=== PATIENT | male | born 1980 | race Two or more races ===

== ENCOUNTER 2019-05-21 07:54 | Emergency (ER) | payer MEDICAID, OTHER ==
[~2019-05-21] VITALS: Ht 180.3 cm; Wt 95.3 kg
[2019-05-21 09:55] VITALS: BP 136/69
[2019-05-21] MEDS ORDERED: METHOCARBAMOL 500 MG TAB PO ONE (10:15)
[2019-05-21] MEDS ORDERED: KETOROLAC TROMETH 60MG/2ML VIAL IM ONE (10:15)
== END 2019-05-21 10:45 | disposition home or self-care (01) ==
LOC: ER 07:54 → EDBD 07:54 → ER 10:45
DX: M62.830 Muscle spasm of back (principal)
CPT/HCPCS: 96372; 99283; J1885

== ENCOUNTER 2021-06-21 19:40 | Emergency (ER) | payer MEDICAID ==
[~2021-06-21] VITALS: Ht 182.9 cm; Wt 102.1 kg
[2021-06-21] MEDS ORDERED: KETOROLAC TROMETH 30 MG/ML 1ML VIAL IM ONE (22:30)
[2021-06-21] MEDS ORDERED: IBUP600T27 PO (22:37)
[2021-06-21 23:09] VITALS: BP 133/78
== END 2021-06-21 23:08 | disposition home or self-care (01) ==
LOC: ER 19:43
DX: S83.91XA Sprain of unspecified site of right knee, initial encounter (principal); Z79.1 Long term (current) use of non-steroidal anti-inflammatories (NSAID); W17.89XA Other fall from one level to another, initial encounter; Y93.89 Activity, other specified; Y92.89 Other specified places as the place of occurrence of the external cause; Y99.8 Other external cause status
CPT/HCPCS: 29505; 73562; 96372; 99283; J1885

== ENCOUNTER 2021-11-30 00:17 | Emergency (ER) | payer MEDICAID ==
[~2021-11-30] VITALS: Ht 182.9 cm; Wt 98.0 kg
[~2021-11-30 00:17] MED LIST: IBUP600T27 PO
[2021-11-30] MEDS ORDERED: PROM1SOL4 PO (03:05)
[2021-11-30] MEDS ORDERED: AZITTAB PO (03:05)
[2021-11-30] MEDS ORDERED: ALBUAER3 IN (03:05)
[2021-11-30 03:58] VITALS: BP 139/84
== END 2021-11-30 04:05 | disposition home or self-care (01) ==
LOC: ER 00:17
DX: J06.9 Acute upper respiratory infection, unspecified (principal)

== ENCOUNTER 2024-03-20 12:40 | Emergency (ER) | payer MEDICAID ==
[~2024-03-20] VITALS: Ht 182.9 cm; Wt 106.8 kg
[~2024-03-20 12:40] MED LIST changes: +ALBUAER3 IN; +AZITTAB PO; +IBUP-1454 PO; -IBUP600T27 PO; +PROM1SOL4 PO
--- NOTE | 2024-03-20 14:01 | DVH ---
CLINICAL INDICATION: pain TECHNIQUE: XY L KNEE 3V XRAY Comparison: R KNEE 3V XRAY on DOS: 06/21/21 FINDINGS/IMPRESSION: There is no evidence of acute fracture or dislocation. The visualized joint space is well maintained. The alignment is anatomical. There is no radiopaque foreign body.
--- NOTE | 2024-03-20 14:54 | ED.PDOC ---
Musculoskeletal HPI Comments 43 year old male presents for left knee pain Onset started months ago but reports symptoms have been gradually worsening reports hyperextending right knee years ago reports pain comes and go with no specific pattern taking oxycodone from friend denies f/c/n/v/d Able to bear weight on the leg Denies trauma to the knee or recent fall Denies skin color changes around the knee Denies masses around the knee Denies popping/locking/giving out of the knee Denies fever chills night sweats nausea vomiting Denies previous surgeries to the knee nor significant injury Chief Complaint: Lower Extremity Time Seen by MD: 13:18 Primary Care Provider: MONCHO Reviewed Notes: Nurses Notes, Medications, Allergies Allergies: Coded Allergies: NO KNOWN ALLERGIES (Unverified , 05/21/19) Home Meds Active Scripts Naproxen (Naproxen) 500 Mg Tab, 500 MG PO BID for 14 Days, #28 TAB 0 Refills Prov:MERYL MICHELE NURSE CONSULTANT 03/20/24 Prednisone (Prednisone) 20 Mg Tab, 40 MG PO DAILY for 5 Days, #10 TAB 0 Refills Prov:MERYL MICHELE NURSE CONSULTANT 03/20/24 Albuterol Sulfate (VENTOLIN MDI) 90 Mcg Ih, 90 MCG IN TID PRN, #1 INH Prov:KISHA CONSTANTINO 11/30/21 Promethazine-Dm (Promethazine Dm 6.25-15 mg/5Ml) 1 Fany Fany, 10 ML PO TID PRN, #240 ML Prov:KISHA CONSTANTINO 11/30/21 Azithromycin (Zithromax Z-Serge) 250 Mg Tab, 250 MG PO DAILY for 5 Days, #6 TAB Prov:KISHA CONSTANTINO 11/30/21 Ibuprofen (Ibuprofen) 600 Mg Tab, 1 TAB PO TID, #30 TAB 0 Refills Prov:JOSH GARCIA 06/21/21 Information Source: Patient Mode of Arrival: Ambulatory Past Medical History PAST MEDICAL HISTORY: Denies Surgical History: Hernia Repair Family History Family History: Reviewed,noncontributory to illness, No family hx of Cancer, No family hx of DM, No family hx of Heart trevor, No family hx of HTN, No family hx ofKidney trevor, No family hx of Liver trevor, No family hx of Lung trevor, No family hx of Stroke Social History Smoker: Non-Smoker Alcohol: Denies ETOH Use Drugs: Denies Drug Use Lives In: Home All Other Systems: Reviewed and Negative (per hpi) Physical Exam General Appearance: No Apparent Distress, Normal HEENT: Normal ENT Inspection, Pharynx Normal, TMs Normal Neck: Full Range of Motion, Non-Tender, Normal, Normal Inspection Respiratory: Chest Non-Tender, Lungs Clear, No Accessory Muscle Use, No Respiratory Distress, Normal Breath Sounds Cardiovascular: No Murmur, No Gallop, Regular Rate/Rhythm Breast Exam: Deferred Gastrointestinal: No Organomegaly, Non Tender, No Pulsatile Mass, Normal Bowel Sounds, Soft Genitalia: Deferred Pelvic: Deferred Rectal: Deferred Extremities: No calf tenderness, Normal capillary refill, Normal inspection, Normal range of motion, Non-tender, No pedal edema Musculoskeletal : Location: Left Extremity Location: Knee (No gross abnormality to the knee on inspection. No open wounds, no ecchymosis, no soft tissue swelling, no erythema. Full passive and active range of motion. No crepitus. Valgus valgus stress test negative. Anterior and posterior drawer test negative) Apperance: Normal Neurologic: Alert, skidder II-XII nml as Tested, No Motor Deficits, Normal Affect, Normal Mood, No Sensory Deficits Cerebellar Function: Normal Reflexes: Normal Skin: Dry, Normal Color, Warm Lymphatic: No Adenopathy Was a procedure done? Was a procedure done?: No Differential Diagnosis EXT Differential Diagnosis: Fracture, Sprain, Dislocation, Strain X-Ray, Labs, Meds, VS Vital Signs Date Time Temp Pulse Resp B/P (MAP) Pulse Ox O2 Delivery O2 Flow Rate FiO2 03/20/24 15:30 98.0 86 16 162/94 (116) 96 98.0 03/20/24 15:30 86 16 96 Room Air 03/20/24 13:01 98.0 86 16 162/94 (116) 96 Current Medications Medications (Trade) Dose Ordered Sig/Radha Route Start Time Stop Time Status Last Admin Ketorolac Tromethamine (Toradol Injection) 30 mg ONCE ONCE IM 03/20/24 15:00 03/20/24 15:12 DC 03/20/24 15:31 Acetaminophen/ Hydrocodone Bitart ([place] 7.5/325MG Tab) 1 tab ONCE ONCE PO 03/20/24 15:00 03/20/24 15:12 DC 03/20/24 15:31 X-Ray, Labs, Meds, VS Comment X-ray of the left knee X-ray interpreted by radiologist and reviewed by me Today symptoms are consistent with acute internal derangement of the left knee Prescribed NSAIDs for the management of acute knee pain. Recommend light walking under the sun for 30 minutes a day Avoiding running jogging high-impact activities Stretch as tolerated Ice 3x/day for 5 minutes Wear knee brace for stability as needed, elevate leg swelling aggravated On reevaluation, patient had symptomatic improvement. Patient is stable for discharge at this time. External notes reviewed. Test results and diagnostic imaging interpreted. All diagnostic findings, discharge care, education and instructions provided Follow-up with PCP in 2 to 3 days Patient verbalized understanding and agreed to treatment plan Vital signs stable, afebrile, no acute distress noted Patient ambulatory with strong steady gait Advised to return precautions for any new or worsening symptoms, return to ER immediately for re-evaluation Patient is aware that the purpose of this visit was for an acute medical emergency requiring emergent stabilization. Chronic conditions, including malignancies have not been ruled out. Patient is instructed to follow up with PCP as directed and discharge instructions for continued care and workup. If unable to arrange follow-up, patient is to return to the emergency department for reassessment. Patient (parent or legal guardian if applicable) was given verbal and written discharge instructions and acknowledges understanding. Time of 1ST Reevaluation: 14:00 Reevaluation 1ST: Improved Patient Education/Counseling: Diagnosis, Treatment Family Education/Counseling: Diagnosis, Treatment Departure 1 Departure Time of Disposition: 14:54 Impression: Primary Impression: Internal derangement of knee Qualified Codes: M23.92 - Unspecified internal derangement of left knee Disposition: 01 HOME / SELF CARE / HOMELESS Condition: Stable e-Prescriptions Naproxen (Naproxen) 500 Mg Tab 500 MG PO BID for 14 Days, #28 TAB 0 Refills Prov: MERYL MICHELE NP 03/20/24 Prednisone (Prednisone) 20 Mg Tab 40 MG PO DAILY for 5 Days, #10 TAB 0 Refills Prov: MERYL MICHELE NP 03/20/24 Discharged With: Self Critical Care Note Critical Care Time?: No Stability Stability form required: No Heart Score Heart Score: Heart Score Response (Comments) Value History N/A 0 EKG N/A 0 Age N/A 0 Risk Factors N/A 0 Troponin N/A 0 Total 0 MERYL MICHELE NP Mar 20, 2024 14:54
[2024-03-20] MEDS ORDERED: NAPR-746 PO (14:59)
[2024-03-20] MEDS ORDERED: PRED20TA2 PO (14:59)
[2024-03-20 15:30] VITALS: BP 162/94; PULSE 86; RESP 16; TEMP 98; O2SAT 96
[2024-03-20] MEDS: HYDROcodone-ACET 7.5/325MG TAB PO ONE (15:31)
[2024-03-20] MEDS: KETOROLAC TROMETH 30 MG/ML 1ML VIAL IM ONE (15:31)
== END 2024-03-20 15:41 | disposition home or self-care (01) ==
LOC: ER 12:50
DX: M23.92 Unspecified internal derangement of left knee (principal); Z98.890 Other specified postprocedural states; Z79.52 Long term (current) use of systemic steroids; Z79.1 Long term (current) use of non-steroidal anti-inflammatories (NSAID)
CPT/HCPCS: 73562; 96372; 99283; J1885